=== PATIENT | female | born 1960 | race Caucasian/White ===

== ENCOUNTER 2021-07-28 11:08 | Inpatient (IN) | payer OTHER ==
[~2021-07-28] VITALS: Ht 172.7 cm; Wt 53.6 kg
[~2021-07-28 11:08] MED LIST: ANTIVERT25 MG PO; CARAFATE1 GM PO; CELEXA20 MG PO; CLONAZEPAM1 MG PO; DICYCLOMINE HCL20 MG PO; DOXYCYCLINE HY100 MG PO; DYCLONINE HCL5 GM MISC; HYDROMORPHONE HC4 MG PO; HYDROXYZINE HCL25 MG PO; LEVOTHYROXINE25 MCG PO; NEURONTIN300 MG PO; OXYCONTIN30 MG PO; PAXIL20 MG PO; PERCOCET 10-321 EACH PO; PRILOSEC20 MG PO; ZOFRAN ODT4 MG PO
[2021-08-22] MEDS ORDERED: SYNTHROID50 MCG PO (15:07)
--- NOTE | 2021-08-31 06:55 | NUR ---
PRE MEDS GIVEN PER ORDERS.
--- NOTE | 2021-08-31 10:06 | NUR ---
08/31/21 1006 Sheets,Digna 0940 PT ARRIVED TO PACU ON 6L VIA MASK, PT ASLEEP AND SHALLOW DECREASED BREATHING NOTED. JAW THRUST USED TO MAINTAIN AIRWAY. PT NONAROUSABLE TO PAINFUL STIMULI. 0935 PT WAKES TO PAINFUL STIMULI AND PT MAINTAINING OWN AIRWAY. PT REORIENTED TO PACU. PT REPORTS 6/10 PAIN. VSS. 0943 PAIN MEDICATION GIVEN PER EMAR. PT REPORTS BURNING PAIN 8/10. PT REPORTS CHRONIC BACK PAIN AT BASE LINE AND USE OF HEAT PACK AT HOME. 0945 HEAT PACK PLACED ON BACK PER REQUEST 0952 PAIN MEDICATION GIVEN PER EMAR AND VSS. EDUCATION GIVEN ON BREATHING AND MEDICATION. PT REPORTS NO CHANGE IN PAIN. 1000 PT TALKING TO RN AND GRIMACING OFF AND ON. HOB INCREASED SLIGHTLY. O2 DECREASED TO 85% AND DEEP BREATHING ENCOURAGED. O2 INCREASED TO HIGH 90S. 1006 PT REPORTS NO CHANGE IN PAIN.
--- NOTE | 2021-08-31 10:45 | NUR ---
Patient arrives from PACU to med surg floor on stretcher. Pt alert and oriented, c/o post op pain, 5mg oxycodone administered. Pt tolerating PO intake. IVF infusing WNL on pump. SCDs in place. VSS, on room air, CPOX in place, spo2 100%. Assessment complete.
--- NOTE | 2021-08-31 10:55 | NUR ---
PRN oxycodone administered, patient assessed, IVF infusing WNL. ana at bedside.
--- NOTE | 2021-08-31 12:30 | NUR ---
Medications administered, pt continues to c/o pain, IVF infusing WNL. Assisted to reposition.
--- NOTE | 2021-08-31 13:00 | NUR ---
Pt c/o severe pain, noted PRN oxycodone and scheduled Percocet, Dr Davis phoned to confirm oxycodone dosage, she gives confirmation okay to give as patient chronically takes 30mg percocet daily at home for chronic back pain. Motrin, bentyl and additional 5mg oxycodone administered. IVF infusing. Pt tolerating regular diet at this time. Aric at bedside.
--- NOTE | 2021-08-31 14:15 | NUR ---
Scheduled medications administered. IVF infusing WNL. Warm blankets provided. Pt states no needs at this time, is agreeable and discusses plan of care. Discussed pain control, pt rates current pain 5/10. Call light in hand.
--- NOTE | 2021-08-31 14:21 | NUR ---
PT ALERT, ORIENTED AND SUPPORTED BY HER CATARINA. PT RATED PAIN AT 6, SAYS SHE HAS CHRONIC BACK PAIN AND STATED HER PAIN IS NOT FROM HER BACK THOUGH. PT ALSO MENTIONED THAT SHE UNDERSTOOD THAT THE PAIN CONTROL AND ST JAMES WERE GOING TO COORDINATE ON PAIN MGMT. PASSED ALONG TO ALLA REINA. HAD PRAYER, LEFT A G.POST AND EARLENE. WILL FOLLOW
--- NOTE | 2021-08-31 15:45 | NUR ---
Call light answered, IV pump alarming, error resolved. Pt states difficult to get comfortable, pain in back chronically and vaginal pain from surgery. Assisted with repositioning. Leda pad changed, scant red drainage noted. Wyman cath intact and draining WNL. Pt talkative and in good spirits. Gown changed.
[2021-08-31] MEDS ORDERED: PREMARIN30 GM PV (17:03)
[2021-08-31] MEDS ORDERED: DICYCLOMINE HCL20 MG PO (17:08)
[2021-08-31] MEDS ORDERED: EUTHYROX125 MCG PO (17:13)
--- NOTE | 2021-08-31 17:39 | NUR ---
Scheduled medications administered, 5mg PRN oxycodone administered for 5/10 abd pain. She is agreeable to care plan, in good spirits. Dr Davis in room to assess patient.
[2021-08-31] MEDS ORDERED: LACTULOSE10 GM/15 M PO (17:59)
--- NOTE | 2021-08-31 18:00 | NUR ---
MED REC COMPLETE
--- NOTE | 2021-08-31 18:56 | OR ---
[address] [address] Signed DATE OF OPERATION: 08/31/2021 SURGEON: Kiersten Davis MD PROGRAMMING EQUIPMENT OPERATOR: OSVALDO Rodriguez DO PREOPERATIVE DIAGNOSES: 1. Cystocele. 2. Rectocele. POSTOPERATIVE DIAGNOSES: 1. Cystocele. 2. Rectocele. PROCEDURES: 1. Cystocele repair. 2. Rectocele repair. 3. Cystoscopy. ANESTHESIA: General ET. ESTIMATED BLOOD LOSS: 50 mL. DRAINS: Wyman catheter. PACKS: Vaginal. INDICATIONS AND FINDINGS: The patient is a 61-year-old female, who is status post AMPARO-BSO many years ago, who has developed increasing pelvic pressure and vaginal bulge. She has a history of chronic constipation, which is now being managed by using lactulose consistently. At the time of surgery, she was noted to have a grade 2 cystocele, grade 2 rectocele, there was no enterocele. The cuff was well supported. DESCRIPTION OF PROCEDURE: Electronically Signed By: KIERSTEN DAVIS MD 08/31/21 1856 PATIENT NAME: LAURA MOORE OPERATIVE REPORT DATE OF : 58 REPORT #: [id number] PHYSICIAN: KIERSTEN DAVIS MD PCP: HARJIT WALKER MD REPORT IS CONFIDENTIAL AND NOT TO BE RELEASED WITHOUT AUTHORIZATION [address] [id number] Signed The patient was prepped and draped in the dorsal lithotomy position. A weighted speculum was placed in the vagina and the cystocele was identified and Allis clamps were placed in the midline over the anterior vaginal wall. A superficial incision was made along the vaginal mucosa in the midline. The vaginal mucosa was from the underlying tissue with sharp and blunt dissection. There did appear to be some perivesical fascia. When the dissection was completed, interrupted sutures of 0-Vicryl were placed plicating the perivesical fascia with good reduction of the cystocele. Following this, the vaginal mucosa was trimmed a significant amount and the vaginal mucosa was closed with a running suture of 2-0 Vicryl from below the urethra to the apex of the vagina. Good hemostasis was noted. Cystoscopy was then done. She received IV fluorescein. The 30 degree scope was placed after removal of the Wyman. The left ureteral orifice was identified immediately with prompt spill of fluorescein stained urine. The right ureteral orifice was more difficult to visualize and the 30 degree scope was switched for the 70. The right ureteral orifice was easily identified and free spill of urine noted. The cystoscope was removed after draining the bladder and the Wyman replaced. Following this, attention was directed to the rectocele repair. A triangle of tissue was removed from the perineum. The vaginal mucosa was then undermined and incised in the midline with a combination of blunt and sharp dissection. This incision line did deviate slightly to her right. The vaginal mucosa was from the underlying tissue with a combination of blunt and sharp dissection. Unfortunately, there was no perirectal fascial type tissue to complete a site specific repair. The levator muscles were plicated with interrupted sutures of 0-Vicryl from the apex of the vagina towards the vaginal opening. Care was taken to leave adequate caliber to the vagina. Following this, a rectal examination was done which showed good reduction of the defect and no sutures compromising the rectal lumen. There was some bleeding, however, at the lateral apices of the incision. These areas were not very amenable to suturing because of their location. Because of this, FloSeal was placed in these areas in an attempt to aid in hemostasis. The bleeding area on the right side responded very quickly with good hemostasis, however, on the left there continued to be a moderate amount of bleeding despite use of pressure and the FloSeal. Following this, this area was re-explored and there was some bleeding at the base of this, which was accessible and this was controlled with cautery. There was still some bleeding, however. Because of this, Tisseel was then used in this space with good hemostasis noted pretty much immediately. Following this, the vaginal mucosa was trimmed a large amount and the vaginal mucosa was closed with a running suture of 2-0 Vicryl. This was done from the apex of the vagina down to the hymenal ring. Additional sutures were required near the apex of the vagina as well as the midportion for control of bleeding. Following this, the perineal body was reapproximated with interrupted sutures of 0-Vicryl. The posterior fourchette was recreated with a running suture of 2-0 Vicryl. Electronically Signed By: KIERSTEN DAVSI MD 08/31/21 6100 PATIENT NAME: LAURA MOORE CORA OPERATIVE REPORT DATE OF : 58 REPORT #: [id number] PHYSICIAN: KIERSTEN DAVIS MD PCP: HARJIT WALKER MD REPORT IS CONFIDENTIAL AND NOT TO BE RELEASED WITHOUT AUTHORIZATION [address] [address] Signed The skin of the perineum was closed with interrupted sutures placed subcuticularly of the 2-0 Vicryl. Inspection of the vault showed good hemostasis. The remaining Tisseel was sprayed over the incision to further aid in hemostasis. The vaginal canal had adequate width and depth. The vaginal canal was then packed with Premarin-coated gauze. The procedure was terminated. All sponge and needle counts were correct. She tolerated the procedure well and was taken to the recovery room in good condition. Kiersten Davis MD PJW/MODL /[id number] cc: Dr. Michael Walker Copies: ~ Electronically Signed By: KIERSTEN DAVIS MD 08/31/21 1856 PATIENT NAME: LAURA MOORE OPERATIVE REPORT DATE OF : 58 REPORT #: [id number] PHYSICIAN: KIERSTEN DAVIS MD PCP: HARJIT WALKER MD REPORT IS CONFIDENTIAL AND NOT TO BE RELEASED WITHOUT AUTHORIZATION
--- NOTE | 2021-08-31 19:25 | NUR ---
REPORT RECEIVED FROM ALLA REINA. pt RESTING IN BED. HODGSON DRAINING YELLOW URINE. pt RATES PAIN 4-5/10 IN BACK, LEFT FLANK. SCDS ON. WARM PACK PROVIDED FOR BACK REQUESTED AT THIS TIME. CALL LIGHT IN REACH. IVF INFUSING WNL.
--- NOTE | 2021-08-31 21:03 | NUR ---
PT. VITALS AND IS AND OS CHARTED. ROOM TIDIED, FRESH ICE WATER PROVIDED. CALL LIGHT LEFT WITHIN REACH. NO OTHER IMMEDIATE NEEDS AT THIS TIME.
--- NOTE | 2021-08-31 22:07 | NUR ---
pt RESTING IN BED, SMALL AMT SANGUINOUS DRAINAGE ON CHUX, KAITLIN PAD. KAITLIN PAD AND CHUX CHANGED. PACKING IN PLACE, pt STATES PAKCING HAS BEEN HANGING OUT ALL DAY. LEFT IN PLACE. ASSESSMENT COMPLETE. pt C/O PAIN IN BACK. PRN AND SCHEDULED MEDICATIONS ADMINISTERED. pt ABLE TO AMBULATE IN ROOM MULTIPLE LAPS WNL. SBA. IV SITE FLUSHED AND IVF INFUSING WNL. HODGSON CARE COMPLETE. CALL LIGHT IN REACH. ICE WATER REFILLED.
--- NOTE | 2021-09-01 00:08 | NUR ---
NEW BAG LR INFUSING. PT REQUESTED BLINDS DOWN, AND CPOX MACHINE TURNED AWAY FROM HER SHE IS SLEEPING ON HER LEFT SIDE, LIGHTS BOTHER HER. CELL PHONE HAZARDOUS WASTE MANAGEMENT SPECIALIST GIVEN, NO OTHER NEEDS AT THIS TIME.
--- NOTE | 2021-09-01 01:55 | NUR ---
IN pt ROOM FOR VS. VSS. HODGSON EMPTIED 400 MLS CLEAR YELLOW URINE. pt C/O 02/17 BACK PAIN AND KAITLIN PAIN "FEELS LIKE THE CATHETER IS STABBING ME". PRN PAIN MEDICATION ADMINISTERED REQUESTED. ICE WATER REFILLED. ASSESSMENT COMPLETE. SCANT SANGUINOUS DRAINGE ON KAITLIN PAD NOTED. WARM PACK OFFERED FOR BACK, pt DENIES NEED AT THIS TIME. pt REQUESTING SLEEP MEDICAITON, ADMINISTERED PER REQUEST. CALL LIGHT IN REACH.
--- NOTE | 2021-09-01 04:11 | NUR ---
pt RESTING IN BED WITH EYES CLOSED. NO DISTRESS NOTED. LIGHTS OFF IN ROOM.
--- NOTE | 2021-09-01 06:30 | NUR ---
CALL LIGHT ANSWERED. pt REQUESTING PAIN MEDICATIONS. PRN AND SCHEDULED MEDICATIONS ADMINISTERED. CPOX REMOVED AT THIS TIME, SPO2 WNL ON RA. HODGSON REMOVED AT 0630 WNL. KAITLIN PAD CHANGED, SCANT AMT RED DRAINAGE ON PAD. SCDS ON. VSS. ICE WATER REFILLED. IVF INFUSING WNL. CALL LIGHT IN REACH. pt IS REQUESTING SCHEDULED BENTYL AT THIS TIME NORMALLY TAKES IT WITH MEDICATIONS WHEN SHE WAKES, MOBILE THERAPIST TO ADMINISTER.
--- NOTE | 2021-09-01 07:30 | NUR ---
Shift report received from ALLA Ibrahim, pt resting safely in bed w/ call light in reach, no needs at this time
--- NOTE | 2021-09-01 10:00 | NUR ---
Pt sitting up in bed w/ call light in reach. Pt only able to void 40mL, post void residual scan of 415mL. Morning assesment complete and scheduled meds given per providers orders. Pt c/o 5/10 back pain, PRN pain meds given per request. Pt denies any further needs at this time.
--- NOTE | 2021-09-01 10:15 | NUR ---
Patient is in bed with call light in reach. Vitals are complete.
--- NOTE | 2021-09-01 11:00 | NUR ---
Dr. Davis called for an update, TORB for one time straight cath and to encourage pt to void hourly. Pt straight cathed for 700mL, pt tolerated well. Pt up ambulating in hallway ind.
--- NOTE | 2021-09-01 11:30 | NUR ---
Pt lives in [place] with her spouse. Denies needs. Spouse at home with pt due to back injury. He will provide household tasks and grocery shop. Pt denies other needs. Will be able to dc to home when able to void.
--- NOTE | 2021-09-01 12:30 | NUR ---
Pt attempted to void but was unsuccesful, bladder scan showed 280mL, Dr. Davis notified, no new orders at this time. Continue to encourage pt to ambulate and void hourly. Pt's IV wrapped and pt showering ind.
--- NOTE | 2021-09-01 13:58 | NUR ---
PT ALERT, ORIENTED AND SITTING UP IN BED VISITING WITH AT BS. PT SOMEWHAT DISCOURAGED THAT SHE HAS NOT BEEN ABLE TO VOID YET WHICH IS THE DECIDING FACTOR REGARDING DC. PT PLEASANT, REQUESTED PRAYER. SOON PRAYER FINISHED-PT JUMPED UP AND HEADED FOR BR. WILL FOLLOW NEEDED
--- NOTE | 2021-09-01 14:00 | NUR ---
Pt still unable to void, c/o pressure in bladder, bladder scanned for 500mL, Dr. Davis called and updated, TORB to replace delgado. This RN attempted and unsuccesful starting delgado, due to vaginal swelling, Dr. Davis succesful w/ delgado placement. Good urine return observed, pt tolerated well and reports immediate relief. Pt resting in bed safely w/ call light in reach no further needs at this time
--- NOTE | 2021-09-01 15:31 | NUR ---
SPOKE WITH PATIENT SINCE HER BMI IS 17.9. SHE STATES HER NORMAL BODY WITH IS 115-125 LBS. CURRENT WEIGHT IS 118 LBS. SHE HAS A GOOD APPETITE AND EATS A VARIETY OF FOODS. SHE LOVES VANILLA ICE CREAM WITH STRAWBERRIES AND WHIPPED CREAM AND EATS THIS ALMOST EVERY NIGHT AT HOME. SHE HAS NO CONCERNS ABOUT HER DIET AND HER WEIGHT AT THIS TIME. CONTINUE REGULAR DIET.
--- NOTE | 2021-09-01 16:00 | NUR ---
Pt resting safely in bed w/ call light in reach pt denies any needs at this time, delgado in place draining to gravity
--- NOTE | 2021-09-01 18:00 | NUR ---
Pt sitting up in bed w/ call light in reach. Pt c/o 5/10 pain in lower back/cleve area, PRN pain meds given per request. Pt denies any other needs at this time
--- NOTE | 2021-09-01 19:10 | NUR ---
BEDSIDE REPORT FROM DEON Walls RN, PT SITTING UP IN BED ALERT AND ORIETNED. SHE REQUESTED TO HAVE AMBIEN WITH HS MED PASS, NO DISTRESS NOTED.
--- NOTE | 2021-09-01 21:30 | NUR ---
PT RESTING IN BED PLAYING A GAME ON HER PHONE, DISCUSSED MEDS FOR HER HS MED PASS WITH EDUCATION, SHE SAID "YES I HAVE BEEN TAKING ALL OF THAT FOR A LONG TIME." SHE DECLINED WANTING PEPCID ORDER TO START WHEN TAKING PO, SHE SAID "NO I DONT NEED THAT" THIS RN GAVE EDUCATIONS, PURPOSE, PT STILL DECLINED. PT ALSO SAID SHE DIDNT WANT THE HEPARIN INJ, GAVE EDUCATION ON PURPOSE, SHE THEN AGREED TO HAVE. ASSESSMENT COMPLETE, HODGSON IN PLACE PATENT WITH CLEAR YELLOW URINE. NO OTHER REQUESTS OR CONCERNS AT THIS TIME.
--- NOTE | 2021-09-01 21:50 | NUR ---
IN TO GET VITALS, FRESH ICE WATER GIVEN, HODGSON EMPTIED, NO FURTHER NEEDS
--- NOTE | 2021-09-02 | NUR ---
PT CALLED TO INFORM STAFF OF UP TO THE TOILET, HAD BM, NO FURTHER NEEDS
--- NOTE | 2021-09-02 00:18 | NUR ---
PT CALLED TO NOTIFY STAFF THAT SHE HAD BEEN UP TO BATHROOM AND HAD BM.
--- NOTE | 2021-09-02 00:46 | NUR ---
PT UP TO THE TOILET, HAD BM, NO FURTHER NEEDS
--- NOTE | 2021-09-02 00:47 | NUR ---
PT UP TO BATHROOM HAD LARGE FORMED BM AT THIS TIME.
--- NOTE | 2021-09-02 01:54 | NUR ---
PT UP TO BATHROOM HAVING MULTIPLE BM BACK TO BACK. PT REPORTS INCREASE IN PAIN AND CRAMPING, SHE IS PASSING COPIOUS AMOUNTS OF FLATUS, PRN OXYCODONE 10MG PO
--- NOTE | 2021-09-02 02:30 | NUR ---
PT UP AMBULATING IN ROOM, SHE HAS STEADY GAIT, DISCUSSED SAFETY MEASURES AND FALL PREVENTION. SHE HAS NO CONCERNS OR REQUESTS AT THIS TIME.
--- NOTE | 2021-09-02 04:16 | NUR ---
Pt was incontinent of very large amount of very soft bm. f/c patent. pt did own care, clean pad and unerwear given. cooperative
--- NOTE | 2021-09-02 04:53 | NUR ---
CALLED , TO REPORT PT HAVING COPIOUS AMOUNTS OF LOOSE STOOL, PT REQUEST BENTYL FOR HER IBS, SAID OK TO GIVEN 0900 DOSE NOW
--- NOTE | 2021-09-02 06:00 | NUR ---
PT HAS BEEN UP TO BATHROOM FREQUENTLY, PRODUCING QUANTITY SUFFICIENT URINE IN HODGSON, CLEAR YELLOW. SHE HAS REQUESTED PRN PAIN MEDICATION ONCE FOR BREAKTHROUGH PAIN, SHE HAS HAD NO NAUSEA, CALLED THIS AM PT REQUESTED TO HAVE BENTYL FOR IBS SYMTPOMS, THE BENTYL IS SCHEDULED AT 0900, GAVE ORDER TO GIVE EARLY TO TREAT PT SYMPTOMS OF ABD CRAMPING AND COPIOUS AMOUNTS OF SOFT TO LIQUID STOOL. PT HAS BEEN AWAKE MOST OF SHIFT DESPITE GIVEN AMBIEN PRN AT HS. PT WILL HAVE VOIDING TRAIL TODAY TO DETERMINE POSSIBLE DISCHARGE.
--- NOTE | 2021-09-02 07:15 | NUR ---
REPORT RECIEVED FROM COMPOSITION FLOOR SETTER RN, PT LAYING IN BED RESTING CALL LIGHT CHRISTOPHER HODGSON TO BE REMOVED. NO NEEDS AT THE MOMENT
--- NOTE | 2021-09-02 07:25 | NUR ---
0720 - f/c dc'd, 9cc water ballon deflated. procedure explained. Pt aware of post void residual checks. cooperative
--- NOTE | 2021-09-02 09:05 | NUR ---
Patient voided 145 ml.
--- NOTE | 2021-09-02 09:13 | NUR ---
Patient has been walking around in the room, SBA.
--- NOTE | 2021-09-02 09:24 | NUR ---
RN IN ROOM PT ABLE TO VOID 145, POST VOID RESIDUAL 0
--- NOTE | 2021-09-02 09:30 | NUR ---
RN IN ROOM TO GIVE PT MEDS, REFUSED MORNING MEDS,ABLE TO VOID POST CATHETER REMOVAL DR BLANCHARD AWARE, INSTRUCTED TO CALL NURSE IF SHE VOIDS AGAIN SO WE CAN SCAN HER, NO OTHER NEEDS AT THE MOMENT
--- NOTE | 2021-09-02 10:05 | NUR ---
Per RN pt was able to void. Possible dc to home today. No needs from CM.
[2021-09-02] MEDS ORDERED: IBU800 MG PO (10:51)
[2021-09-02] MEDS ORDERED: SENOKOT-S TABL1 EACH PO (10:52)
[2021-09-02] MEDS ORDERED: KONDREMUL2.5 ML/5 M PO (10:53)
--- NOTE | 2021-09-02 10:53 | NUR ---
Patient vitals are complete. is in the room.
[2021-09-02] MEDS ORDERED: OXYCODONE HCL5 MG PO (10:54)
--- NOTE | 2021-09-02 11:00 | NUR ---
PT WALKED OUT OF THE HOSPITAL BEFORE RN WAS ABLE TO GIVE DISCHARGE PACKET AND PAPER WORK, RN WAS ABLE TO CALL PT ON HER PERSONAL PHONE AND GO OVER DC INSTRUCTIONS, PT VERBALIZED UNDERSTANDING AND HAD NO QUESTIONS.
== END 2021-09-02 11:02 | disposition home or self-care (01) | DRG 748 ==
LOC: MS 08-10 06:45 → DSVR 08-31 05:59 → MS 08-31 06:45
PROVIDERS: ADMIT Obstetrics & Gynecology; ATTEND Obstetrics & Gynecology
PROC: 0TJB8ZZ Inspection of Bladder, Via Natural or Artificial Opening Endoscopic (ICD-10-PCS; 2021-08-31)
PROC: 0JQC0ZZ Repair Pelvic Region Subcutaneous Tissue and Fascia, Open Approach (ICD-10-PCS; principal; 2021-08-31 06:45)
PROC: 0JQC0ZZ Repair Pelvic Region Subcutaneous Tissue and Fascia, Open Approach (ICD-10-PCS; 2021-08-31 06:45)
DX: N81.6 Rectocele (principal); N81.10 Cystocele, unspecified; D64.9 Anemia, unspecified; Z88.0 Allergy status to penicillin; Z88.6 Allergy status to analgesic agent; Z88.8 Allergy status to other drugs, medicaments and biological substances
CPT/HCPCS: 00942; 80048; 85027; A9270; C2631; J0131; J0690; J1100; J1170; J1644; J1885; J2405; J2704; J2765; J3010; J3475; J7121